=== PATIENT | male | born 1955 | race Caucasian/White ===

== ENCOUNTER → 2017-01-18 | Outpatient (CLI) | payer MEDICARE ==
[~2017-01-18] MED LIST: HYDROCODON-ACE1 EAC2 PO; KLONOPIN TAB 00.5 MG PO; LANTUS100 UNIT/1 SQ; NEURONTIN 300300 MG PO; NORVASC 5 MG TAB5 MG PO; NOVOLOG100 UNIT/1 SQ; RANITIDINE HCL300 MG PO; TIZANIDINE HCL2 MG PO
== END ==
LOC: LAB 08:51
PROVIDERS: Internal Medicine Nephrology
DX: N18.3 Chronic kidney disease, stage 3 (moderate) (principal)
CPT/HCPCS: 36415; 80053; 82043; 82570; 84156